=== PATIENT | female | born 1985 | race African-American/Black ===

== ENCOUNTER 2019-11-24 09:42 | Outpatient (CLI) | payer OTHER, SELFPAY ==
--- NOTE | 2019-11-28 12:13 | WPDHOLTEREM ---
Holter/Event Monitor Holter/Event Monitor Date of procedure: 11/24/19 Procedure Type: 24 hour holter monitor Indications: Tachycardia Conclusion: 1. 24 hour holter monitor on 11/24/19. 2. Predominant rhythm is sinus rhythm. HR range 59-143 bpm; average HR 88 bpm. 3. There are premature supraventricular complexes. No supraventricular tachycardia. 4. No premature ventricular complex. 1 nonsustained ventricular tachycardia at 136 bpm lasting 7 beats. 5. No sinoatrial or atrioventricular blocks. No significant pauses greater than 2 seconds. 6. Patient reports symptoms of shortness of breath, chest pain which demonstrate sinus rhythm, HR range 73-138 bpm.
== END 2019-11-24 09:43 | disposition home or self-care (01) ==
LOC: ANHCARD 09:43
PROVIDERS: Visit Provider Obstetrics & Gynecology
DX: R00.0 Tachycardia, unspecified (principal)
CPT/HCPCS: 93225; 93226

== ENCOUNTER 2020-01-31 13:35 | Outpatient (CLI) | payer OTHER, SELFPAY ==
[2020-01-31 14:15] VITALS: BP 107/68; PULSE 97
[2020-01-31 14:30] VITALS: BP 114/71; PULSE 90
[2020-01-31 14:45] VITALS: BP 109/68; PULSE 91
[2020-01-31 15:00] VITALS: BP 113/64; PULSE 91
[2020-01-31 15:15] VITALS: BP 100/59; PULSE 91
[2020-01-31 15:16] VITALS: BP 107/68; PULSE 97
== END 2020-01-31 15:16 | disposition home or self-care (01) ==
LOC: ANHOBOP 13:46 → ANHOBPP 13:49
PROVIDERS: Visit Provider Obstetrics & Gynecology
DX: O41.93X3 Disorder of amniotic fluid and membranes, unspecified, third trimester, fetus 3 (principal); Z3A.32 32 weeks gestation of pregnancy
CPT/HCPCS: 59025; 84112; 99199

== ENCOUNTER 2020-03-14 06:15 | Inpatient (IN) | payer OTHER, SELFPAY ==
[2020-03-14] VITALS (181 sets, daily range): BP systolic 50–132; BP diastolic 31–97; PULSE 53–133; RESP 18; TEMP 36.6–37.3; O2SAT 75–100; BMI 31.9
[2020-03-14 06:59] LABS: Basophils Percent Auto 0.3 % (0.2-1.2); Eosinophils Absolute Auto 0.1 K/mm3 (0-0.3); Eosinophils Percent Auto 1.1 % (0-4.4); Hematocrit 43.5 % (37.0-47.0); Hemoglobin 14.4 g/dL (12.0-15.0); Immature Granulocyte Absolute 0.06 K/mm3 (0.00-0.031); Immature Granulocyte Percent A 0.8 % (0-0.5); Immature Platelet Fraction Pct 10.6 % (0.9-11.2); Lymphocytes Absolute Auto 1.64 K/mm3 (0.9-3.2); Lymphocytes Percent Auto 22.7 % (18.3-44.2); Mean Corpuscular HGB Conc 33.1 g/dl (32-36); Mean Corpuscular Hemoglobin 27.8 pg (26-34); Mean Platelet Volume 11.5 fl (7.4-10.4); Monocytes Absolute Auto 0.7 K/mm3 (0.1-0.6); Monocytes Percent Auto 9.4 % (2.6-8.5); Neutrophils Absolute Auto 4.7 K/mm3 (1.3-6.7); Neutrophils Percent Auto 65.7 % (45.5-73.1); Platelet Count Result 147 k/mm3 (150-375); Red Blood Count 5.18 M/mm3 (4.2-5.4); Red Cell Distribution Width 13.9 % (11.5-14.5); White Blood Count 7.2 K/mm3 (4.5-10.0)
--- NOTE | 2020-03-14 07:02 | LDADM ---
This patient, Chana Tariq, was admitted to Labor/Delivery/Recovery 104 on 03/14/20 at 06:15. Plans for labor, pain management and were discussed with patient. Patient/family oriented to hospital policies and general routines including ID bracelet, bed and alarms, visiting hours, pain management, procedures, bathroom and other care routines, personal items, smoking policy, room service/diet and guest tray routines, infant security routines, and visiting hours. Patient/Family are encouraged to report perceived risks to care and to ask questions if they do not understand what they are told or what they should do. See OBIX for further documentation.
--- NOTE | 2020-03-14 07:28 | WPDHPUPDATE1 ---
History and Physical Update Update Date/Time: 03/14/20 07:28 AROM - clear, /-3, reactive History and Physical has been reviewed, including an updated exam of the patient. There are NO changes in the patient's condition. Risks, benefits, and alternatives have been discussed and questions answered. Patient agrees to proceed with procedure.
[2020-03-14] MEDS: OXYTOCIN 30 UNITS/NS 500 ML 30 UNITS/500 ML BAG IV CONT (07:31)
[2020-03-14] MEDS: LACTATED RINGERS 1,000 ML 125 ML IV CONT ×3 (07:31→16:34)
--- NOTE | 2020-03-14 08:43 | WPDANESEPP ---
Anes - Eval Pre Procedure Procedure: Labor Epidural Date/Time: 03/14/20 08:43 Surgeon: Sanchez Preop Diagnosis: Labor Pain Pre Op Diagnosis: Induction of Labor Patient Data Age: 34 Gender: F Height: 5 ft 3 in Weight: 81.82 kg Last Vital Signs Temp 36.8 C 03/14/20 07:27 Pulse 87 03/14/20 08:35 BP 124/63 03/14/20 08:35 Allergies Allergy/AdvReac Type Severity Reaction Status Date / Time No Known Allergies Allergy Verified 12/17/17 15:30 Home Medications Medication Instructions Recorded Confirmed Type PNV cmb#95-ferrous fumarate-FA 1 tablet PO DAILY 02/20/20 02/20/20 History [] Laboratory Tests 03/14/20 03/14/20 03/14/20 06:52 06:52 06:52 WBC 7.2 K/mm3 K/mm3 (4.5-10.0) RBC 5.18 M/mm3 M/mm3 (4.2-5.4) Hgb 14.4 g/dL g/dL (12.0-15.0) Hct 43.5 % % (37.0-47.0) MCV 84.0 fl fl (80-100) MCH 27.8 pg pg (26-34) MCHC 33.1 g/dl g/dl (32-36) RDW 13.9 % % (11.5-14.5) Plt Count 147 k/mm3 L k/mm3 (150-375) MPV 11.5 fl H fl (7.4-10.4) Immature Gran % (Auto) 0.8 % H % (0-0.5) Neut % (Auto) 65.7 % % (45.5-73.1) Lymph % (Auto) 22.7 % % (18.3-44.2) [place] % (Auto) 9.4 % H % (2.6-8.5) Eos % (Auto) 1.1 % % (0-4.4) Baso % (Auto) 0.3 % % (0.2-1.2) Lymph # (Auto) 1.64 K/mm3 K/mm3 (0.9-3.2) [place] # (Auto) 0.7 K/mm3 H K/mm3 (0.1-0.6) Eos # (Auto) 0.1 K/mm3 K/mm3 (0-0.3) Baso # (Auto) 0.0 K/mm3 K/mm3 (0.0-0.1) Abs Immat Gran (auto) 0.06 K/mm3 H K/mm3 (0.00-0.031) Absolute Neuts (auto) 4.7 K/mm3 K/mm3 (1.3-6.7) Absolute Nucleated RBC 0.0 K/mm3 K/mm3 (0.0-0.012) Nucleated RBC % 0.0 % % (0.0-0.2) % Immature Plt Fraction 10.6 % % (0.9-11.2) RPR Pending Blood Type A Positive Antibody Screen Negative : gestational age (KIM 03/21/20) HCG: positive Patient hx anesthesia problems: none Family hx anesthesia problems: none [facility] Family History Family History Mother Patient's mother is in good health Father Patient's father is in good health Sibling Patient's sister is in good health Social History Social History Smoking status: Current every day smoker Second hand tobacco smoke exposure: Yes Smoking end date: 06/09/14 Alcohol intake: current Substance use: never Gender identity (if verbalized by the patient): Female Spiritual care concerns: No Exam Day of Procedure 03/14/20 08:43 Patient weight: normal Heart: regular rate and rhythm Lungs: normal air movement Airway: Mallampati scale class II Neurological: alert and oriented
[2020-03-14] MEDS: PHENYLEPHRINE 1,000 MCG/10 ML SYRINGE 100 MCG IV PUSH ×2 (09:54→10:03)
[2020-03-14] MEDS: ONDANSETRON INJ 4 MG/2 ML VIAL IV PUSH (10:28)
[2020-03-14 11:36] LABS: Rapid Plasma Reagin Non-Reactive (NonReactive)
--- NOTE | 2020-03-14 17:58 | PM.OBPRVD ---
OB - Delivery Note Procedure Delivery date: 03/14/20 Procedure: events: Labor Induction Intrapartal events: None Induction method: AROM and per pitocin protocol Delivery augmentation: rupture of membranes Delivery monitor: none Route of delivery: Episiotomy description: None Laceration Description: Perineal - 1st Degree Delivery repair: vicryl Specimen: No Quantitative Blood Loss (ml): 100 Anesthesia type: Epidural Disposition: floor Complications: none [place] Baby Date of : 03/14/20 Time of : 17:46 Weeks of gestation at delivery: 39 Infant gender: Male Weight (pounds): 7 Weight (ounces): 4 presentation: vertex position: Left Occiput Anterior Placenta delivery description: Spontaneous cord vessel description: 3 Vessels score one minute: 8 score five minutes: 9
[2020-03-14] MEDS: OXYTOCIN 30 UNITS/NS 500 ML 30 UNITS/500 ML BAG 125 UNITS IV CONT (18:20)
[2020-03-14] MEDS: IBUPROFEN 600 MG TABLET PO (19:47)
[2020-03-14] MEDS: WITCH HAZEL 40 PADS 1 PAD TOPICAL (19:48)
[2020-03-14] MEDS: BENZOCAINE 20% AER SPR (*SP) 56 GM CAN 1 SPRAY TOPICAL (19:48)
--- NOTE | 2020-03-14 21:44 | OBPPTRN ---
Patient transferred to post room # 285 via wheelchair. Support person and present. Oriented to unit, room, information board, rooming in, admission packet and security measures. Patient verbalizes understanding.
[2020-03-15] MEDS: IBUPROFEN 600 MG TABLET PO ×2 (04:18→09:45)
[2020-03-15 04:49] LABS: Hematocrit 36.4 % (37.0-47.0); Hemoglobin 12.1 g/dL (12.0-15.0)
--- NOTE | 2020-03-15 07:49 | PM.OBPNVD ---
OB - PN: Subj Subjective Date/time seen: 03/15/20 07:49 Patient comments: no complaints baby status: doing well OB - PN: Obj Data Labs CBC & Chem 7: 03/15/20 04:08 Labs: Laboratory Results - last 24 hr 03/14/20 03/14/20 03/15/20 06:52 06:52 04:08 Hgb 12.1 Hct 36.4 L RPR Non-reactive Blood Type A Positive Antibody Screen Negative OB - PN A/P Plan day: 1 Plan: routine care Time Spent With Patient Time: Total time spent is greater than 50% in coordination of care (as documented) at patient's floor/unit and/or counseling patient: Time with patient: less than 15 minutes Review of Systems Review of Systems: All systems reviewed & are unremarkable except as noted in HPI and below Exam Narrative: Exam Narrative: Fundus firm and vaginal flow controlled. No lower ext redness, warmth, or edema. Negative homans. Const: General: comfortable Chest: Breast/axilla inspection: normal inspection of the breasts Resp: Effort & Inspection: normal respiratory effort Cardio: Rate: regular rate GI: GI Palp: Yes Soft to palpation Psych: Appearance: grossly normal Affect: normal affect Attitude: cooperative Thought content: Yes Normal thought content present Judgement: Good judgement present (Psych)
[2020-03-15 08:00] VITALS: BP 110/65; PULSE 72; RESP 16; RESP 18; TEMP 37; O2SAT 98
--- NOTE | 2020-03-15 08:40 | WPDANLDPN2 ---
Anes-Prog Note L&D Date/Time: 03/15/20 08:40 Comfortable throughout: labor and delivery Neuraxial method: epidural Epidural/Spinal procedure site: clean & non-tender Neuro status: Neuro function grossly intact. Cardiovascular status: normal Respiratory status: normal Airway patency: baseline Mental status: baseline Post-Op hydration status: normal Vital Signs: Last Vital Signs Temp 36.9 C 03/14/20 21:45 Pulse 83 03/14/20 21:45 Resp 18 03/14/20 21:45 BP 108/69 03/14/20 21:45 Pulse Ox 97 03/14/20 21:45 Pain score (VAS): 02/18 I/O: Intake & Output 03/14/20 03/15/20 03/15/20 23:59 07:59 15:59 Intake Total 2300 Output Total 120 Balance 2180 Post-procedural complaints: none Patient feedback: Patient satisfied with anesthetic care.
[2020-03-15] MEDS: MULTIVIT/MIN/PREN/FOL AC/IRON TABLET 1 TAB PO (09:45)
--- NOTE | 2020-03-15 12:42 | PC.NURSE ---
1000 Breast feeding note; nurse visited with parents; mother waking for feeding when nurse came to room. Encouraged her to put baby skin to skin for feedings, which she did; baby was circumcised this morning. He woke when undressed but made no effort to root to latch; mother held in cradle position, and tried to get him to latch. He held her nipple in his mouth. Mother seemed very resistive to nurse assistance. Nurse explained cross cradle position, and nose to nipple latch on technique and how these two ways can help open his mouth wide to latch to feed. Reviewed how to assess that baby is latched and nursing effectively. Mother made no effort to change her position, and do what nurse suggested. baby was sleeping at the breast. Nurse discussed giving infant a little more time because of his circumcision, and to try again in about 30 minutes. Nurse offered to return to assist as mother desired, and asked her to call if she could not get infant to nurse soon. Reviewed importance of q2-3h and on demand feedings, use of feeding log to monitor feedings and output, and Mother Baby Guide, breast feeding section flagged, including LC contact information. Mother reports she did not nurse her first 2 babies, and that the second child would not latch . Again nurse encouraged her to call out for nurse assistance with breast feeding.
[2020-03-15 19:31] VITALS: BP 113/63; PULSE 83; RESP 16; TEMP 36.8
--- NOTE | 2020-03-16 07:31 | PM.OBPNVD ---
OB - PN: Subj Subjective Date/time seen: 03/16/20 07:31 Patient comments: no complaints baby status: doing well OB - PN: Obj Data Labs CBC & Chem 7: 03/15/20 04:08 OB - PN A/P Plan day: 2 Plan: routine care and discharge home Time Spent With Patient Time: Total time spent is greater than 50% in coordination of care (as documented) at patient's floor/unit and/or counseling patient: Review of Systems Review of Systems: All systems reviewed & are unremarkable except as noted in HPI and below Exam Const: General: cooperative Psych: Affect: normal affect Attitude: cooperative Insight: Good insight present (Psych)
--- NOTE | 2020-03-16 07:33 | PM.OBDSVD ---
DS: Admitting Diagnosis Admitting Diagnosis Admitting Diagnosis: EB OB - DS: Summary OB Procedures : None OB Procedures Intrapartum: Spontaneous Vag Delivery OB Procedures: : None Time Spent with Patient Time attestation: Total time spent providing and/or coordinating discharge services: Discharge Plan Discharge Attending physician on discharge: Lorrie Bradford Discharging Clinician: Addis Fisher Patient Disposition: Home, Self-Care Activity: pelvic rest Diet: regular Patient Instructions: Antibiotic Form Stand Alone Forms: General Discharge Information Follow-up/Referrals: Lorrie Bradford MD [Physician] - 1 Week Discharge Medications: Continued PNV cmb#95-ferrous fumarate-FA [] 28 mg iron- 800 mcg Tablet 1 tablet PO DAILY RF: 0 Date of admission: 03/14/20 06:15 Primary Care Provider: 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
[2020-03-16 08:00] VITALS: BP 95/50; PULSE 72; RESP 16; TEMP 37.1; O2SAT 99
[2020-03-16 08:30] VITALS: RESP 16
[2020-03-16] MEDS: MULTIVIT/MIN/PREN/FOL AC/IRON TABLET 1 TAB PO (09:25)
[2020-03-16] MEDS: IBUPROFEN 600 MG TABLET PO (09:25)
[2020-03-16] MEDS: WITCH HAZEL 40 PADS 1 PAD TOPICAL (13:00)
[2020-03-16] MEDS: LANOLIN (LANSINOH) 7.5 GM CREAM 1 APPLIC TOPICAL (13:00)
[2020-03-17 11:48] VITALS: BP 113/73; PULSE 58; RESP 20; TEMP 36.9; O2SAT 99
== END 2020-03-16 13:10 | disposition home or self-care (01) | DRG 560 ==
LOC: ANHLDR 06:20 → ANHOB2 21:54
PROVIDERS: Admitting Provider Obstetrics & Gynecology; Visit Provider Obstetrics & Gynecology
DX: O70.0 First degree perineal laceration during delivery (principal); Z37.0 Single live birth; Z3A.39 39 weeks gestation of pregnancy
CPT/HCPCS: 36415; 85014; 85018; 85025; 85055; 86592; 86850; 86900; 86901; A9270; J2370; J2405; J2590; J2795; J7120

== ENCOUNTER 2022-08-18 10:15 | Outpatient (RCR) | payer OTHER, SELFPAY ==
--- NOTE | 2022-07-24 10:35 | PCPTNOTE ---
Patient called & cancelled scheduled initial evaluation this date due to car troubles. She has been rescheduled for 07/31/22.
[2022-07-31 10:19] VITALS: BP_SYST 120
--- NOTE | 2022-07-31 11:34 | OPREHPOC ---
Outpatient Therapy Plan of Care This is a Multidisciplinary Plan of Care that may contain components documented by all disciplines (PT, OT, and ST.) PT Problem 1 PT Problem #1 Knowledge Deficit PT Goal 1 Goal Pt to be IND with issued HEP Target Visit 8 PT Problem 2 PT Problem #2 Pain PT Goal 1 Goal Pt to report marc shoulder pain no greater than 3/ 10 in the last week Target Visit 8 PT Goal 2 Goal Pt to report being about to sleep through the night without being woken d/t shoulder pain Target Visit 8 PT Problem 3 PT Problem #3 Impaired Range of Motion PT Goal 1 Goal Pt to improve active shoulder flexion/abduction on R to 120deg ea Target Visit 8 PT Goal 2 Goal Pt to improve L shoulder abduction to 120 deg Target Visit 8 PT Problem 4 PT Problem #4 Impaired Strength PT Goal 1 Goal Pt to improve BUE strength to grossly 4+/5 Target Visit 8 PT Goal 2 Goal Pt to be able to lift 5lb overhead without an increase in pain Target Visit 8 PT Problem 5 PT Problem #5 Impaired Functional Mobil PT Goal 1 Goal Pt to report 80% return to PLOF. Target Visit 8
--- NOTE | 2022-07-31 11:34 | PTOPEVAL1 ---
Assessment and note entered by Amara Mackey, PT, DPT Evaluation Information Assessment Status Evaluation Diagnosis marc shoulder pain Onset 3 months Subjective Information Pt reports marc shoulder. She states it is hard to lift her arms over head, to the side, or behind her. She states the pain is worse at night and first thing in the morning. She reports taking Alive daily and this helps with the pain. She states her motion is limited by pain, and she feels like she has to pop her shoulder back into place. She reports intermittent chest pain that she thinks might be related. She states she needs assist getting dress most days. 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 Reported Pain Level Pain Score 3,3: Self Report Assessment PT Clinical Summary Chana presents to therapy today for her initial evaluation with a diagnosis of L and R shoulder pain. Today she demonstrates decreased shoulder active and passive ROM in all planes. Her motions is limited by pain as well as a reported shoulder popping sensation . She demonstrates shoulder weakness, decreased shoulder ROM, postural abnormalities, and abnormal movement mechanics d/t pain. Multiple shoulder special tests were positive d/t pain. Skilled therapy services are indicated to address the deficits noted above, to manage pain, to improve function, and to return to baseline mobility. Plan of Care Interventions Electrical Stimulation,Hot Pack/Cold Pack,Manual Therapy,Neuro Re-education,Patient/Caregiver Educati,Therapeutic Activities,Therapeutic Exercise PT Services Indicated Yes Treatment Frequency and 2x/wk for 4 wks Duration These treatments will address the objective and functional deficits as defined above. The patient will be advanced safely and appropriately in order for the patient to progress towards his/her prior level of function. Additional exercises will be introduced and as well as a comprehensive home exercise program upon discharge, if needed, ?to ensure carryover of functional gains achieved in the clinic. This treatment plan has been reviewed and agreement upon by the patient.
--- NOTE | 2022-08-08 08:19 | PCPTNOTE ---
Patient no call no show this date. Patient was contacted and states she believes her insurance does not cover. Clerical staff is going to look into and call patient to manage upcoming appointment per insurance approval.
--- NOTE | 2022-08-20 10:37 | PCPTNOTE ---
Pt no showed appt this morning. LM to confirm pts next appt and offered appt times for this afternoon.
--- NOTE | 2022-08-25 08:24 | PCPTNOTE ---
Pt no showed appt today for the 3rd time. Called pt but was unable to leave message on cell.
--- NOTE | 2022-08-25 08:32 | PTOPDC ---
Assessment and note entered by Amara Mackey, PT, DPT Evaluation Information Assessment Status Discharge - Pt Not Present Diagnosis marc shoulder pain Onset 3 months Subjective Information Pt did not show for her scheduled appointment this morning. In her currently POC this is her 3rd no show. Assessment PT Clinical Summary Chana was evaluated on 07/31/22 and has attended 2 visits and no showed 3 visits. Per the attendance policy she will be discharged at this time. Called and LVM notifying pt of her discharged from therapy.
== END 2022-08-25 10:11 | disposition home or self-care (01) ==
LOC: ANHGOSHPT 10:15
PROVIDERS: PCP Nurse Practitioner Family; Visit Provider Nurse Practitioner Family
DX: M25.511 Pain in right shoulder (principal); M25.512 Pain in left shoulder
CPT/HCPCS: 97014; 97110; 97112; 97140; 97161; 97530; 99199; G0283

== ENCOUNTER 2024-11-01 11:09 | Outpatient (CLI) | payer OTHER, SELFPAY ==
[2024-11-01 18:51] LABS: Hematocrit 43.0 % (37.0-47.0); Hemoglobin 14.5 g/dL (12.0-15.0); Immature Granulocyte Percent A 0.2 % (0-0.5); Lymphocytes Absolute Auto 1.24 K/mm3 (0.9-3.2); Mean Corpuscular HGB Conc 33.7 g/dl (32-36); Mean Corpuscular Hemoglobin 28.8 pg (26-34); Mean Corpuscular Volume 85.3 fl (80-100); Nucleated Red Blood Cells Absolute Auto 0.000 K/mm3 (0.0-0.012); Nucleated Red Blood Cells Perc 0.0 % (0.0-0.2); Platelet Count Result 177 k/mm3 (150-375); Red Blood Count 5.04 M/mm3 (4.2-5.4); White Blood Count 4.1 K/mm3 (4.5-10.0)
[2024-11-01 19:37] LABS: Alanine Aminotransferase 18 U/L (6-35); Albumin Level 4.5 g/dL (3.5-5.1); Alkaline Phosphatase 58 U/L (38-126); Anion Gap 8 mmol/L (4-12); Aspartate Amino Transferase 26 U/L (14-36); Bilirubin,Total 0.7 mg/dL (0.2-1.3); Blood Urea Nitrogen 9 mg/dL (7-17); Calcium 8.6 mg/dL (8.4-10.2); Carbon Dioxide 26 mmol/L (22-30); Chloride 104 mmol/L (98-107); Cholesterol 192 mg/dL (0-200); Estimated Glomerular Filt Rate > 60; Glucose 90 mg/dL (65-110); HDL Direct 40 mg/dL; Potassium 4.2 mmol/L (3.4-5.0); Sodium 138 mmol/L (137-145); Total Protein 8.0 g/dL (6.3-8.2); Triglycerides 93 mg/dL (<150)
[2024-11-01 19:50] LABS: Hemoglobin A1C 4.6 % (<5.7)
[2024-11-01 19:58] LABS: Free T4 Free Thyroxine 1.15 ng/dL (0.78-2.19)
[2024-11-01 20:13] LABS: Thyroid Stimulating Hormone 0.653 uIU/mL (0.465-4.680)
== END 2024-11-01 11:10 | disposition home or self-care (01) ==
LOC: ANHGOSHLAB 11:11
PROVIDERS: PCP Nurse Practitioner Family; Visit Provider Nurse Practitioner Family
DX: Z13.220 Encounter for screening for lipoid disorders (principal); E55.9 Vitamin D deficiency, unspecified; G43.909 Migraine, unspecified, not intractable, without status migrainosus; R63.4 Abnormal weight loss; Z68.25 Body mass index [BMI] 25.0-25.9, adult
CPT/HCPCS: 36415; 80053; 80061; 82306; 83036; 84439; 84443; 85025